=== PATIENT | female | born 1985 | race Caucasian/White ===

== ENCOUNTER 2023-09-26 15:38 | Emergency (ER) | payer BC ==
[~2023-09-26] VITALS: Ht 162.6 cm; Wt 61.2 kg
[2023-09-26 15:38] VITALS: BP_SYST 95; PULSE 104; RESP 21; TEMP 98.9; O2SAT 99
[2023-09-26 17:20] LABS: INFLUENZA TYPE A Negative (NEGATIVE)
[2023-09-26 17:24] LABS: COVID19 ANTIGEN SOFIA FIA NEGATIVE (NEGATIVE)
[2023-09-26 17:26] LABS: INFLUENZA TYPE B POSITIVE (NEGATIVE)
[2023-09-26] MEDS ORDERED: OSEL75CA PO (17:36)
[2023-09-26] MEDS ORDERED: ONDA-8 TL (17:36)
== END 2023-09-26 17:44 | disposition home or self-care (01) ==
LOC: SED 15:38
DX: J11.1 Influenza due to unidentified influenza virus with other respiratory manifestations (principal); Z20.822 Contact with and (suspected) exposure to COVID-19
CPT/HCPCS: 36415; 71045; 99284